=== PATIENT | female | born 1960 | race Caucasian/White ===

== ENCOUNTER → 2017-03-25 | Outpatient (CLI) | payer OTHER ==
--- NOTE | 2017-03-26 12:44 | MAMMOGRAPHY REPORT ---
BILATERAL DIGITAL SCREENING MAMMOGRAM TOMOSYNTHESIS WITH CAD: 03/25/2017 CLINICAL HISTORY: Routine screening. Patient has no complaints. TECHNIQUE: Breast tomosynthesis in addition to standard 2D mammography was performed. Current study was also evaluated with a Computer Aided Detection (CAD) system. COMPARISON: Comparison is made to exams dated: 03/21/2016 mammogram, 02/24/2015 ultrasound, 02/24/2015 mammogram, 02/16/2015 mammogram, 02/15/2014 mammogram, and 02/11/2013 mammogram - [facility]. BREAST COMPOSITION: There are scattered areas of fibroglandular density in both breasts. FINDINGS: There are stable nodular asymmetries in the medial left breast. No new suspicious mass, ar chitectural distortion or cluster of microcalcifications is seen. IMPRESSION: ACR BI-RADS CATEGORY 1: NEGATIVE There is no mammographic evidence of malignancy. A 1 year screening mammogram is recommended. The pa tient will receive written notification of the results. Approximately 10% of breast cancers are not detected with mammography. A negative mammographic report should not delay biopsy if a clinically suggestive mass is present. Chelsey Desai M.D. ay/:03/25/2017 15:57:55 Retail Mortgage Banker: Lorelei Seymour, [facility] letter sent: Normal 1/2 BI-RADS Code: ACR BI-RADS Category 1: Negative
== END | disposition home or self-care (01) ==
LOC: C.MAMM 08:40
PROVIDERS: ATTEND Family Medicine
DX: Z12.31 Encounter for screening mammogram for malignant neoplasm of breast (principal)

== ENCOUNTER → 2018-03-31 | Outpatient (CLI) | payer OTHER ==
--- NOTE | 2018-04-01 14:54 | MAMMOGRAPHY REPORT ---
BILATERAL DIGITAL SCREENING MAMMOGRAM TOMOSYNTHESIS WITH CAD: 03/31/2018 CLINICAL HISTORY: Routine screening. Patient has no complaints. TECHNIQUE: The study was acquired using full field digital technology and interpreted from soft copy. Breast tomosynthesis in addition to standard 2D mammography was performed. Current study was also ev aluated with a Computer Aided Detection (CAD) system. COMPARISON: Comparison is made to exams dated: 03/21/2016 mammogram, 02/24/2015 ultrasound, 02/24/2015 mammogram, 02/16/2015 mammogram, 02/15/2014 mammogram, and 02/11/2013 mammogram - [facility]. BREAST COMPOSITION: There are scattered areas of fibroglandular density in both breasts. FINDINGS: There are stable asymmetries in the medial anterior left breast. Minimal vascular calcific ation in the breasts. No suspicious mass, architectural distortion or cluster of microcalcifications is seen. IMPRESSION: ACR BI-RADS CATEGORY 1: NEGATIVE There is no mammographic evidence of malignancy. A 1 year screening mammogram is recommended.( 019) The patient will receive written notification of the results. Some breast cancers are not detected with mammography. A negative mammographic report should not jordan y biopsy if a clinically suggestive mass is present. Chelsey Desai M.D. ay/:03/31/2018 15:39:23 Regional Operations Manager: RT Ayana(R)(M), [facility] letter sent: Normal 1/2 BI-RADS Code: ACR BI-RADS Category 1: Negative
== END | disposition home or self-care (01) ==
LOC: C.MAMM 09:09
PROVIDERS: ATTEND Family Medicine
DX: Z12.31 Encounter for screening mammogram for malignant neoplasm of breast (principal)

== ENCOUNTER 2021-09-01 17:19 | Inpatient (IN) ==
[2021-09-01] MEDS ORDERED: dexAMETHasone 6 MG in SYRINGE 0 ML IV ONE (17:48)
[2021-09-01] MEDS ORDERED: SODIUM CHLORIDE 0.9% 1000ML 1,000 ML IV ONE (17:48)
--- NOTE | 2021-09-01 17:59 | Emergency Department Note ---
Impression & Plan Respiratory failure, Pneumonia due to 2019 novel coronavirus, Hypoxia ED Provider Note NAME: ALYCIA SARAVIA AGE: 61 SEX: F : 1960 ARRIVES VIA: Walk-In INFORMANT: Patient ED PROVIDER(S): Mahamed Oconnor DO CHIEF COMPLAINT: COIVD+ SOB HPI: Patient is a 61-year-old female unvaccinated who presents ER with upper respiratory symptoms with start just over a week ago. She admits to upper respiratory symptoms which include cough and congestion as well as shortness of breath which is significantly worsened. Her shortness of breath has been progressing for the past several days. She has a pulse oximeter at home and has been using it. It has been as low as high 70s. Denies any belly pain, nausea, vomiting, or diarrhea. No dysuria, urgency, or frequency. has similar symptoms but is vaccinated and doing well. No other exacerbating or remitting factors ROS: See above HPI for pertinent positives & negatives. A total of 10 systems reviewed and were otherwise negative. PAST MEDICAL HISTORY:See Below PAST SURGICAL HISTORY:See Below FAMILY HISTORY:See Below SOCIAL HISTORY:See Below HOME MEDICATIONS:See Below ALLERGIES:See Below VITALS:See Below PHYSICAL EXAMINATION: GENERAL: Sitting up in bed, alert, ill-appearing, mild distress EYE EXAM: normal conjunctiva. OROPHARYNX: Dry mucous membranes NECK: supple, no nuchal rigidity, no adenopathy, non-tender LUNGS: Diminished bilaterally. Normal chest wall mechanics HEART: no murmurs, S1 normal and S2 normal ABDOMEN: abdomen soft, non-tender, normo-active bowel sounds, no masses, no rebound or guarding. BACK: Back is symmetrical on inspection and there is no deformity, no midline tenderness, no CVA tenderness. SKIN: no rashes and no bruising UPPER EXTREMITIES: upper extremities are grossly normal. LOWER EXTREMITIES: No pitting edema. Calves are equal bilateral NEURO EXAM: Normal sensorium, cranial nerves II-XII grossly intact, normal speech, no gross weakness of arms, no gross weakness of legs. MEDICAL DECISION MAKING: Patient is a 61-year-old female who presents ER for upper respiratory symptoms and Covid positive with a pulse ox reading in the low 80s and high 70s at home. IV was established blood work was obtained. She was found to be hypoxic in the low 80s here. She is placed on nasal cannula 3 L. IV was established blood was obtained. Labs show no significant leukocytosis or anemia. BMP with mild hypokalemia at 3.4. AST slightly elevated at 98. ALT was normal. Troponin was negative. Patient was Covid positive. Chest x-ray with bilateral infiltrates. EKG was unremarkable. Patient was given IV fluids and Decadron and remained on nasal cannula while in the ER. Patient was admitted for further work-up to Dr. John Shannon. Triage Nursing notes reviewed. Limited review of prior medical records performed Vital Signs: reviewed and remarkable for hypoxic Differential diagnosis: Differential diagnoses includes but is not limited to pneumonia, bronchitis, INFORMATION SECURITY CONSULTANT D/Asthma exacerbation, pneumothorax, pulmonary embolism, congestive heart failure, acute coronary syndrome ER treatment provided: See below Diagnostics interpreted by me: ECG: Sinus rhythm rate 84 Normal axis No PVCs QTC 444 Cardiac Monitoring: An order was placed for continuous cardiac monitoring. The monitor shows a rate of 80 with sinus rhythm. Laboratory studies: As stated above and show below. Imaging studies: Portable AP upright 1 view of the chest shows bilateral focal infiltrates Consultation(s): Discussed with the hospitalist John Shannon Procedures: none Critical Care: I have personally spent 32 minutes of critical care time in the direct ma nagement of this patient. This includes bedside care, interpretation of diagnostic studies, and testing, discussion with consultants, patient, and family members, and other required patient management activities. This 32 minutes is in excess of all separately billable procedures. Past Med/Surg History Social History Smoking Status: Never smoker Feels Safe at Home: Yes Allergies Allergies Allergy/AdvReac Type Severity Reaction Status Date / Time Penicillins Allergy Unknown Unverified 09/01/21 19:36 Home Meds Home Medications Medication Instructions Recorded Confirmed acetaminophen 650 mg 1,300 mg PO Q8H PRN 09/01/21 09/01/21 tablet,extended release (Tylenol 8 Hour) amlodipine 10 mg tablet 10 mg PO DAILY 09/01/21 09/01/21 dextromethorphan-guaifenesin 10 1 tab-cap PO QID PRN 09/01/21 09/01/21 mg-200 mg capsule (Coricidin HBP Chest Congestion-Cough) ibuprofen 200 mg tablet 400 mg PO Q6H PRN 09/01/21 09/01/21 levothyroxine 112 mcg tablet 112 mcg PO QAM 09/01/21 09/01/21 Results & Data (ED) Vital Signs Vital Signs - 24 hr 09/01/21 17:39 09/01/21 18:00 09/01/21 18:47 Temperature 36.4 C L Temperature Source Temporal Artery Scan Pulse Rate 94 H 89 Pulse Rate from SpO2 Sensor 88 Respiratory Rate 20 28 H 27 H Respiratory Effort / Characteristics Non-Labored Spontaneous Respiratory Depth Normal Respiratory Pattern Regular Blood Pressure 121/79 139/88 153/102 H Blood Pressure Mean 93 105 119 Pulse Oximetry 84 L 93 Oxygen Delivery Method Room Air Oxygen Flow Rate Sepsis Recent Fever Within 48 Hours No Sepsis New/Unexplained Change in Mental Status No Sepsis Action Taken by Nursing No Action Required 09/01/21 19:03 09/01/21 19:30 Temperature Temperature Source Pulse Rate 82 Pulse Rate from SpO2 Sensor Respiratory Rate 15 Respiratory Effort / Characteristics Non-Labored Spontaneous Respiratory Depth Normal Respiratory Pattern Regular Blood Pressure 143/79 H Blood Pressure Mean 100 Pulse Oximetry 93 92 Oxygen Delivery Method Nasal Cannula Nasal Cannula Oxygen Flow Rate 3 3 Sepsis Recent Fever Within 48 Hours Sepsis New/Unexplained Change in Mental Status Sepsis Action Taken by Nursing Laboratory Data Result diagrams: 09/01/21 17:48 09/01/21 17:48 Lab Results 09/01/21 09/01/21 09/01/21 Range/Units 17:48 17:48 Unknown WBC 10.43 (4.8-10.8) K/uL RBC 4.75 (4.2-5.4) M/uL Hgb 13.9 (12.0-16.0) g/dL Hct 41.2 (37-47) % MCV 86.7 (80-100) fL MCH 29.3 (25-34) pg MCHC 33.7 (32-36) g/dL RDW Std Deviation 44.6 (36.4-46.3) fL RDW Coeff of Francisco 14.1 (11.5-14.5) % Plt Count 279 (130-400) K/uL MPV 9.9 (7.4-10.4) fL Immature Gran % (Auto) 0.4 % Neut % (Auto) 89.2 % Lymph % (Auto) 7.3 % [place] % (Auto) 2.9 % Eos % (Auto) 0.0 % Baso % (Auto) 0.2 % Neut # (Auto) 9.31 H (1.4-6.5) K/uL Lymph # (Auto) 0.76 L (1.2-3.4) K/uL [place] # (Auto) 0.30 (0.11-0.59) K/uL Eos # (Auto) 0.00 (0-0.5) K/uL Baso # (Auto) 0.02 (0-0.2) K/uL Immature Gran # (Auto) 0.04 H (0.00-0.02) K/uL Sodium 140 (136-145) mmol/L Potassium 3.4 L (3.5-5.1) mmol/L Chloride 107 (98-107) mmol/L Carbon Dioxide 28 (21-32) mmol/L Anion Gap 5.0 (3-11) BUN 19 H (7-18) mg/dl Creatinine 0.80 (0.6-1.2) mg/dl Est Cr Clr Drug Dosing Not Reportable Est GFR ( Amer) 92.9 ml/min Est GFR (Non-Af Amer) 80.1 ml/min BUN/Creatinine Ratio 23.4 H (10-20) Glucose 111 H (70-99) mg/dl Calcium 9.1 (8.5-10.1) mg/dl Total Bilirubin 0.4 (0.2-1) mg/dl AST 98 H (15-37) U/L ALT 75 (12-78) Alkaline Phosphatase 170 H (45-117) U/L Troponin I < 0.015 (0-0.045) ng/ml Total Protein 7.1 (6.4-8.2) gm/dl Albumin 2.4 L (3.4-5.0) gm/dl Globulin 4.7 H (2.5-4.0) gm/dl Albumin/Globulin Ratio 0.5 L (0.9-2) Lipase 69 L (73-393) U/L SARS-CoV-2, RNA, NAAT POSITIVE A* (NEGATIVE) Administered Medications Discontinued Medications Dexamethasone (Dexamethasone Sod Inj 4 Mg/Ml Vial) Confirm Administered Dose 4 mg .ROUTE .STK-MED ONE Stop: 09/01/21 18:36 Last Admin: 09/01/21 18:38 Dose: Not Given Documented by: [id number] Dexamethasone 6 mg/ Syringe 1.5 mls @ 1 mls/min IV ONE ONE Stop: 09/01/21 17:49 Last Admin: 09/01/21 18:38 Dose: 1 mls/min Documented by: [id number] Sodium Chloride (Nss 1000ml) 1,000 mls @ 999 mls/hr IV .Q1H1M ONE Stop: 09/01/21 18:48 Last Admin: 09/01/21 18:37 Dose: 999 mls/hr Documented by: [id number] Imaging Data Radiologist's Impression: Chest X-Ray 09/01/21 17:48 XR chest 1V portable HISTORY: 61 years-old Female Chest Pain acute atypical chest pain COMPARISON: None TECHNIQUE: Portable AP view of the chest FINDINGS: Cardiac silhouette is normal in size. There is no pneumothorax.. Multifocal right greater than left airspace opacities. Bones appear grossly intact. IMPRESSION: 1. Right greater than left airspace opacities are compatible with multifocal pneumonia. 2. Probable trace pleural effusions. ACT 112: Negative or not required by law. The above report was generated using voice recognition software. It may contain grammatical, syntax or spelling errors. Electronically signed by: Deandre Rowe M.D. 09/01/2021 6:42 PM Discharge Plan Visit Data Chief Complaint: Shortness of Breath/Dyspnea Stated Complaint: COVID + 07/29/21 ED Provider: Mahamed Oconnor Discharge Problem: Respiratory failure, Pneumonia due to 2019 novel coronavirus, Hypoxia Forms Stand Alone Forms: My [facility] [employer] Prescriptions Prescriptions: No Action levothyroxine 112 mcg tablet 112 mcg PO QAM RF: 0 Coricidin HBP Chest Ian-Cough 10-200 mg Capsule 1 tab-cap PO QID PRN (Reason: Cough) RF: 0 amlodipine 10 mg Tablet 10 mg PO DAILY RF: 0 ibuprofen 200 mg Tablet 400 mg PO Q6H PRN (Reason: Pain) RF: 0 acetaminophen [Tylenol 8 Hour] 650 mg Tablet Extended Release 1,300 mg PO Q8H PRN (Reason: Pain) RF: 0 Referrals Referrals: Netta Duran DO [Primary Care Provider] - Discharge Problem: Respiratory failure Qualifiers: Chronicity: acute Respiratory failure complication: hypoxia Qualified Code(s): J96.01 - Acute respiratory failure with hypoxia
[2021-09-01] MEDS ORDERED: DEXAMETHASONE SOD INJ 4 MG/ML VIAL ONE (18:35)
--- NOTE | 2021-09-01 18:43 | XRay Report ---
XR chest 1V portable HISTORY: 61 years-old Female Chest Pain acute atypical chest pain COMPARISON: None TECHNIQUE: Portable AP view of the chest FINDINGS: Cardiac silhouette is normal in size. There is no pneumothorax.. Multifocal right greater than left a irspace opacities. Bones appear grossly intact. IMPRESSION: 1. Right greater than left airspace opacities are compatible with multifocal pneumonia. 2. Probable trace pleural effusions. ACT 112: Negative or not required by law. The above report was generated using voice recognition software. It may contain grammatical, syntax o r spelling errors. Electronically signed by: Deandre Rowe M.D. 09/01/2021 6:42 PM
[2021-09-01 18:45] LABS: Basophils # (auto) 0.02 K/uL (0-0.2); Basophils % (auto) 0.2 %; Hematocrit (blood only) 41.2 % (37-47); Hemoglobin 13.9 g/dL (12.0-16.0); Immature Granulocytes # (auto) 0.04 K/uL (0.00-0.02); Immature Granulocytes % (auto) 0.4 %; Lymphocytes # (auto) 0.76 K/uL (1.2-3.4); Lymphocytes % (auto) 7.3 %; Mean Corpuscular Hemoglobin 29.3 pg (25-34); Mean Corpuscular Hgb Conc 33.7 g/dL (32-36); Mean Corpuscular Volume 86.7 fL (80-100); Mean Platelet Volume 9.9 fL (7.4-10.4); Monocytes % (auto) 2.9 %; Neutrophils # (auto) 9.31 K/uL (1.4-6.5); Neutrophils % (auto) 89.2 %; Platelet Count 279 K/uL (130-400); RDW Coefficient of Variation 14.1 % (11.5-14.5); RDW Standard Deviation 44.6 fL (36.4-46.3); Red Blood Count 4.75 M/uL (4.2-5.4); White Blood Count 10.43 K/uL (4.8-10.8)
[2021-09-01 19:10] LABS: Alanine Aminotransferase 75 (12-78); Albumin Level 2.4 gm/dl (3.4-5.0); Aspartate Aminotransferase 98 U/L (15-37); BUN Creatinine Ratio 23.4 (10-20); Blood Urea Nitrogen 19 mg/dl (7-18); Calcium 9.1 mg/dl (8.5-10.1); Carbon Dioxide 28 mmol/L (21-32); Chloride 107 mmol/L (98-107); Est GFR (African American) 92.9 ml/min; Est GFR (Non-African American) 80.1 ml/min; Glucose 111 mg/dl (70-99); Lipase 69 U/L (73-393); Potassium 3.4 mmol/L (3.5-5.1); Sodium 140 mmol/L (136-145)
[2021-09-01 19:15] LABS: Albumin Globulin Ratio 0.5 (0.9-2); Alkaline Phosphatase 170 U/L (45-117); Bilirubin,Total 0.4 mg/dl (0.2-1); Globulin 4.7 gm/dl (2.5-4.0); Total Protein 7.1 gm/dl (6.4-8.2); Troponin I < 0.015 ng/ml (0-0.045)
[2021-09-01] MEDS ORDERED: REMDESIVIR 200 MG in SODIUM CHLORIDE 0.9% 210 ML IV STA (20:02)
--- NOTE | 2021-09-01 20:02 | History & Physical Report ---
Date of Service September 01, 2021 Assessment & Plan (1) Acute respiratory failure with hypoxia: Plan: Acute respiratory failure with hypoxia/COVID-19 pneumonia/secondary bacterial pneumonia- Given dexamethasone 10 mg IV by the ED Dexamethasone 6 mg IV every morning Remdesivir IV per protocol Duonebs every 4 hours while awake and every 2 hours when necessary. Ceftriaxone 1 g IV daily Azithromycin 500 mg IV daily Guaifenesin extended release 12 mg p.o. twice daily Vitamin D 5000 international units p.o. every morning Zinc sulfate 220 mg p.o. every morning Nasal cannula oxygen, titrate to keep pulse ox 92-94% (2) Pneumonia due to 2019 novel coronavirus: Plan: See above (3) Secondary bacterial pneumonia: Plan: See above (4) Hypertension: Plan: Continue amlodipine with hold parameters (5) Hypothyroidism (acquired): Plan: Continue levothyroxine History of Present Illness Chief Complaint: The patient presents to the emergency department with symptoms of shortness of breath, dyspnea on exertion, cough, congestion and generalized fatigue, initially began about 7 days ago, but worsened considerably over the past 3 days Primary Care Provider: Netta Duran DO The patient is a 61-year-old female with past medical history including hype rtension and hypothyroidism, who is unvaccinated for COVID-19, who was exposed to a 20-year-old son with COVID-19, who presents with symptoms as noted above. Significant laboratories: Potassium 3.4, AST 98, albumin 2.4. COVID-19 testing is positive Pulse ox on room air is 84%, improving to 94% on 3 L nasal cannula oxygen. Patient was given dexamethasone 10 mg IV by the ED Allergies Allergy/AdvReac Type Severity Reaction Status Date / Time Penicillins Allergy Unknown Unverified 09/01/21 19:36 Home Medications Medication Instructions Recorded Confirmed Type acetaminophen 650 mg 1,300 mg PO Q8H PRN 09/01/21 09/01/21 History tablet,extended release (Tylenol 8 Hour) amlodipine 10 mg tablet 10 mg PO DAILY 09/01/21 09/01/21 History dextromethorphan-guaifenesin 10 1 tab-cap PO QID PRN 09/01/21 09/01/21 History mg-200 mg capsule (Coricidin HBP Chest Congestion-Cough) ibuprofen 200 mg tablet 400 mg PO Q6H PRN 09/01/21 09/01/21 History levothyroxine 112 mcg tablet 112 mcg PO QAM 09/01/21 09/01/21 History Past Med/Surg History Medical History (Updated 09/01/21 @ 21:40 by John Shannon MD) Hypertension Hypothyroidism (acquired) Social History Smoking Status: Never smoker Feels Safe at Home: Yes Review of Systems Review of Systems: The patient denies chest pain, palpitations, lower extremity swelling, chills, sweats, nausea, vomiting, diarrhea , constipation, abdominal pain, pelvic pain, blood in urine or stool, dysuria, urinary frequency or urgency, memory loss, loss of consciousness, rash, abnormal bruising or bleeding, imbalance, focal weakness, numbness or tingling in arms or legs, back or neck pain, or night sweats. The review of systems is otherwise negative other than for that already noted above, and at least 10 systems have been reviewed. Physical Exam Physical Exam: The patient is awake, alert and oriented 3, well developed and well nourished, normocephalic and atraumatic, lying in bed on her stomach, and in no acute distress. HEENT--PERRL, EOMI, mucous membranes and oropharynx dry. Neck--supple. No JVD. No bruits. Thyroid normal, trachea midline, no a denopathy. Heart--normal S1 and S2. No murmurs, rubs or gallops. Lungs-coarse breath sounds bilaterally. Mild respiratory distress, no accessory muscle use. Abdomen--normal bowel sounds and soft. Nontender. Nondistended. Mildly obese Extremities--no cyanosis or clubbing. No edema. Dermatologic--normal skin turgor, normal color, no abnormal lymph nodes, no rash. Neurologic--cranial nerves II through XII grossly intact. Rheumatologic--normal range of motion. Psychiatric--normal affect. Results & Data Results & Data ([facility]) Vital Signs (Past 12 Hours) Vital Signs Temp Pulse Resp BP Pulse Ox 09/01/21 19:30 82 15 143/79 H 92 09/01/21 19:03 93 09/01/21 18:47 89 27 H 153/102 H 93 09/01/21 18:00 94 H 28 H 139/88 09/01/21 17:39 36.4 C L 20 121/79 84 L Laboratory Results Laboratory Results WBC 10.43 K/uL (4.8-10.8) 09/01/21 17:48 RBC 4.75 M/uL (4.2-5.4) 09/01/21 17:48 Hgb 13.9 g/dL (12.0-16.0) 09/01/21 17:48 Hct 41.2 % (37-47) 09/01/21 17:48 MCV 86.7 fL (80-100) 09/01/21 17:48 MCH 29.3 pg (25-34) 09/01/21 17:48 MCHC 33.7 g/dL (32-36) 09/01/21 17:48 RDW Std Deviation 44.6 fL (36.4-46.3) 09/01/21 17:48 RDW Coeff of Francisco 14.1 % (11.5-14.5) 09/01/21 17:48 Plt Count 279 K/uL (130-400) 09/01/21 17:48 MPV 9.9 fL (7.4-10.4) 09/01/21 17:48 Immature Gran % (Auto) 0.4 % 09/01/21 17:48 Neut % (Auto) 89.2 % 09/01/21 17:48 Lymph % (Auto) 7.3 % 09/01/21 17:48 [place] % (Auto) 2.9 % 09/01/21 17:48 Eos % (Auto) 0.0 % 09/01/21 17:48 Baso % (Auto) 0.2 % 09/01/21 17:48 Neut # (Auto) 9.31 K/uL (1.4-6.5) H 09/01/21 17:48 Lymph # (Auto) 0.76 K/uL (1.2-3.4) L 09/01/21 17:48 [place] # (Auto) 0.30 K/uL (0.11-0.59) 09/01/21 17:48 Eos # (Auto) 0.00 K/uL (0-0.5) 09/01/21 17:48 Baso # (Auto) 0.02 K/uL (0-0.2) 09/01/21 17:48 Immature Gran # (Auto) 0.04 K/uL (0.00-0.02) H 09/01/21 17:48 Sodium 140 mmol/L (136-145) 09/01/21 17:48 Potassium 3.4 mmol/L (3.5-5.1) L 09/01/21 17:48 Chloride 107 mmol/L (98-107) 09/01/21 17:48 Carbon Dioxide 28 mmol/L (21-32) 09/01/21 17:48 Anion Gap 5.0 (3-11) 09/01/21 17:48 BUN 19 mg/dl (7-18) H 09/01/21 17:48 Creatinine 0.80 mg/dl (0.6-1.2) 09/01/21 17:48 Est Cr Clr Drug Dosing Not Reportable 09/01/21 17:48 Est GFR ( Amer) 92.9 ml/min 09/01/21 17:48 Est GFR (Non-Af Amer) 80.1 ml/min 09/01/21 17:48 BUN/Creatinine Ratio 23.4 (10-20) H 09/01/21 17:48 Glucose 111 mg/dl (70-99) H 09/01/21 17:48 Calcium 9.1 mg/dl (8.5-10.1) 09/01/21 17:48 Total Bilirubin 0.4 mg/dl (0.2-1) 09/01/21 17:48 AST 98 U/L (15-37) H 09/01/21 17:48 ALT 75 (12-78) 09/01/21 17:48 Alkaline Phosphatase 170 U/L (45-117) H 09/01/21 17:48 Troponin I < 0.015 ng/ml (0-0.045) 09/01/21 17:48 Total Protein 7.1 gm/dl (6.4-8.2) 09/01/21 17:48 Albumin 2.4 gm/dl (3.4-5.0) L 09/01/21 17:48 Globulin 4.7 gm/dl (2.5-4.0) H 09/01/21 17:48 Albumin/Globulin Ratio 0.5 (0.9-2) L 09/01/21 17:48 Lipase 69 U/L (73-393) L 09/01/21 17:48 SARS-CoV-2, RNA, NAAT POSITIVE (NEGATIVE) A* 09/01/21 Unknown Impressions Chest X-Ray 09/01/21 17:48 XR chest 1V portable HISTORY: 61 years-old Female Chest Pain acute atypical chest pain COMPARISON: None TECHNIQUE: Portable AP view of the chest FINDINGS: Cardiac silhouette is normal in size. There is no pneumothorax.. Multifocal right greater than left airspace opacities. Bones appear grossly intact. IMPRESSION: 1. Right greater than left airspace opacities are compatible with multifocal pneumonia. 2. Probable trace pleural effusions. ACT 112: Negative or not required by law. The above report was generated using voice recognition software. It may contain grammatical, syntax or spelling errors. Electronically signed by: Deandre Rowe M.D. 09/01/2021 6:42 PM Code Status & VTE Plan Code Status Full code VTE Prophylaxis Plan VTE Prophylaxis will be ordered: Yes PG Care Time/CCT Total # of Minutes Spent Total Time Spent with Patient: Total time spent is greater than 50% in coordination of care (as documented) at patient's floor/unit and/or counseling patient: Coding Level of Care Code 16770 Initial Inpt Care Lvl 3 Diagnoses Acute respiratory failure with hypoxia J96.01 Secondary bacterial pneumonia J15.9 Pneumonia due to 2019 novel coronavirus U07.1; J12.82 Hypertension I10 Hypothyroidism (acquired) E03.9
[2021-09-01] MEDS ORDERED: OPTIRAY 320 125ml IV ONE (23:16)
[2021-09-01] MEDS ORDERED: ONDANSETRON INJ 2 MG/ML 2 ML VIAL IV PRN (23:34)
--- NOTE | 2021-09-01 23:45 | CT Scan Report ---
CT angio chest PE protocol CT DOSE: 302.33 mGy.cm HISTORY: 61 years-old Female with PE. Acute chest pain with shortness of breath. COVID Positive. TECHNIQUE: Multiple CTA images of the chest were obtained after the intravenous administration of 117 ml Optiray. Coronal and sagittal MIPS were obtained from the axial data set and were submitted for review. All measurements were obtained according to NASCET criteria. A dose lowering technique was u tilized adhering to the principles of ALARA. COMPARISON: Chest radiograph of same day FINDINGS: CTA: Moderate cardiomegaly. No pericardial effusion. Mild coronary artery calcifications. No thoracic aort ic aneurysm or dissection. Patency of the imaged great vessels. No pulmonary emboli identified. CT CHEST: No thyroid nodule. Mildly enlarged mediastinal and hilar lymph nodes are likely reactive. Small pleur al effusions. No pneumothorax. Extensive bilateral subpleural predominant intermixed groundglass and alveolar opacities. No overt pulmonary edema. The central airways are patent. Suggested hepatosplenomegaly. Small hiatal hernia. Unremarkable soft tissues. Punctate bone islands o f the proximal right humerus. There is no acute fracture identified. IMPRESSION: 1. Cardiomegaly without pulmonary emboli. 2. Extensive bilateral groundglass and alveolar opacities compatible with viral pneumonia. 3. Small pleural effusions. ACT 112: Negative or not required by law. The above report was generated using voice recognition software. It may contain grammatical, syntax o r spelling errors. Electronically signed by: Deandre Rowe M.D. 09/01/2021 11:43 PM
[2021-09-02] MEDS: guaiFENesin 600 MG TABCR PO SCH ×3 (00:30→20:31)
[2021-09-02] MEDS: cefTRIAXone SODIUM 1,000 MG in DEXTROSE 5% 50 ML IV SCH ×2 (00:30→23:38)
[2021-09-02] MEDS: LEVOTHYROXINE SODIUM 112 MCG TABLET PO SCH (06:04)
[2021-09-02] MEDS: AZITHROMYCIN 500 MG in DEXTROSE 5% 250 ML IV SCH (06:05)
[2021-09-02] MEDS: ALBUT/IPRATROP 3MG/0.5MG NEB 3 ML VIAL NEB SCH ×4 (08:28→19:07)
[2021-09-02 08:44] LABS: Basophils # (auto) 0.02 K/uL (0-0.2); Basophils % (auto) 0.3 %; Hematocrit (blood only) 39.9 % (37-47); Hemoglobin 13.4 g/dL (12.0-16.0); Immature Granulocytes # (auto) 0.04 K/uL (0.00-0.02); Immature Granulocytes % (auto) 0.5 %; Lymphocytes # (auto) 0.67 K/uL (1.2-3.4); Lymphocytes % (auto) 8.7 %; Mean Corpuscular Hemoglobin 29.1 pg (25-34); Mean Corpuscular Hgb Conc 33.6 g/dL (32-36); Mean Corpuscular Volume 86.6 fL (80-100); Mean Platelet Volume 10.1 fL (7.4-10.4); Monocytes # (auto) 0.22 K/uL (0.11-0.59); Monocytes % (auto) 2.9 %; Neutrophils # (auto) 6.72 K/uL (1.4-6.5); Neutrophils % (auto) 87.6 %; Platelet Count 348 K/uL (130-400); RDW Coefficient of Variation 14.4 % (11.5-14.5); RDW Standard Deviation 45.4 fL (36.4-46.3); Red Blood Count 4.61 M/uL (4.2-5.4); White Blood Count 7.67 K/uL (4.8-10.8)
[2021-09-02] MEDS: ZINC SULFATE 220 MG CAPSULE PO SCH (08:46)
[2021-09-02] MEDS: amLODIPine BESYLATE 5 MG TAB PO SCH (08:46)
[2021-09-02] MEDS: dexAMETHasone 6 MG in SYRINGE 0 ML IV SCH (08:46)
[2021-09-02] MEDS: CHOLECALCIFEROL 5,000 UNITS 125 MCG TAB PO SCH (08:46)
[2021-09-02 09:07] LABS: Albumin Level 2.2 gm/dl (3.4-5.0); Calcium 8.9 mg/dl (8.5-10.1); Creatinine Clr Calc Pharmacy 81.9 ml/min; Est GFR (African American) 107.3 ml/min; Est GFR (Non-African American) 92.6 ml/min; Potassium 3.6 mmol/L (3.5-5.1)
[2021-09-02 09:09] LABS: Albumin Globulin Ratio 0.5 (0.9-2); Globulin 4.4 gm/dl (2.5-4.0); Total Protein 6.6 gm/dl (6.4-8.2)
[2021-09-02 09:26] LABS: Bilirubin,Total 0.3 mg/dl (0.2-1)
[2021-09-02] MEDS ORDERED: FUROSEMIDE 40 MG/4 ML VIAL IV ONE (10:00)
[2021-09-02] MEDS ORDERED: BARICITINIB COMMUNICATION ONE (12:26)
[2021-09-02] MEDS: 4mg Daily x 14 days (eGFR >60 mL/min/1.73m2) PO SCH (16:19)
--- NOTE | 2021-09-02 18:12 | Hospitalist Progress Note ---
Date of Service September 02, 2021 Assessment & Plan (1) Pneumonia due to 2019 novel coronavirus: Plan: * unvaccinated * initially on 5L o2. on 09/02-- up to 14L and still desaturating into the mid 80's with limited movement (such as toileting) -- goal pulse ox is 88-90% * decadron day #2 * Remdesivir day #2 * Duonebs as needed * CRP 25 * start baricitinib, day #1 * begin lasix trials * continue empiric abx as started by admitted provider; however, unlikely s/s bacterial PNA. likely all Covid related (Ceftriaxone/ Azithromycin) * Mucolytic agents and antitussives on board * Continue vitamin D, zinc and add vitamin C * encouraged proning! * add IS/flutter valve * add lovenox for DVt prophylaxis (2) Hypertension: Plan: Continue amlodipine with hold parameters (3) Hypothyroidism (acquired): Plan: Continue levothyroxine Admission and Anticipated Discharge Date Admission Date: September 01, 2021 Supervising Physician Co-Signing Physician Notes chart reviewed and case d/w Kim Florez PAC - agree with above. Subjective Patient seen on daily rounds today. Did desaturate after toileting. Reports that her oxygen tubing got twisted and she had to take it off for a brief period of time. With this, she desaturated into the high 70s/low 80s and took a while to recover. Was requiring 13 to 14 L and her pulse ox was in the 90s with that. With toileting to the bedside commode, she desaturated into the 80s. Otherwise denies fevers, chills, chest pain, abdominal pain, nausea or vomiting. Review of Systems Review of Systems: All systems reviewed and are unremarkable except as noted in HPI and below Denies fevers, chills, headache, nasal congestion, sore throat, cough, chest pain, shortness of breath, palpitations, orthopnea, PND, abdominal pain, nausea, vomiting, diarrhea, constipation, dysuria, hematuria, frequency, back pain, joint pain or swelling, easy bruising or bleeding, skin lesions or rashes. Physical Exam Physical Exam: General: Resting comfortably in her hospital bed. NAD. HEENT: Head is AT/NC buccal mucosa is moist and pink Neck: No JVD. Negative hepatojugular reflex Cardiac: RRR without M/G/R Lungs: Speaking full sentences on supplemental oxygen. No accessory muscle use. Normal respiratory effort. Diminished breath sounds throughout with positive egophony at the bases Abdomen: Normoactive X4. Soft and nontender in all quadrants. Extremities: No peripheral clubbing cyanosis or edema Neuro: A&O X4 cranial nerves II through XII are grossly intact no focal neuro deficits Skin: No obvious skin lesions or rashes Psych: Appropriate affect pleasant and cooperative Results & Data Results & Data ([facility]) Vital Signs (Past 12 Hours) Vital Signs Temp Pulse Pulse Resp BP Pulse Ox 09/02/21 15:51 96 H 20 93 09/02/21 15:37 96 H 18 93 09/02/21 15:29 37.2 C 89 19 136/86 96 09/02/21 15:00 89 09/02/21 11:24 82 20 97 09/02/21 11:11 37.4 C 82 21 156/85 H 95 09/02/21 08:28 85 20 97 09/02/21 07:30 76 09/02/21 06:37 37.3 C 76 18 154/82 H 91 Laboratory Results 09/02/21 08:03 09/02/21 08:03 PG Care Time/CCT Total # of Minutes Spent Total Time Spent with Patient: Total time spent is greater than 50% in coordination of care (as documented) at patient's floor/unit and/or counseling patient: Coding Level of Care Code 03517 Subseq Hosp Care Lvl 3 Diagnoses Pneumonia due to 2019 novel coronavirus U07.1; J12.82 Hypertension I10 Hypothyroidism (acquired) E03.9
[2021-09-02] MEDS ORDERED: BENZONATATE 100 MG CAPSULE PO PRN (18:20)
[2021-09-02] MEDS: ENOXAPARIN INJ 40 MG/0.4 ML SYR SQ SCH (22:18)
[2021-09-02] MEDS: REMDESIVIR 100 MG in SODIUM CHLORIDE 0.9% 230 ML IV SCH (22:18)
[2021-09-02] MEDS: SODIUM CHLORIDE 0.9% 10ML FLUSH IV SCH (23:39)
[2021-09-03] MEDS: LEVOTHYROXINE SODIUM 112 MCG TABLET PO SCH (05:30)
[2021-09-03] MEDS: AZITHROMYCIN 500 MG in DEXTROSE 5% 250 ML IV SCH (05:30)
[2021-09-03 06:44] LABS: Hematocrit (blood only) 40.8 % (37-47); Hemoglobin 13.6 g/dL (12.0-16.0); Mean Corpuscular Hgb Conc 33.3 g/dL (32-36); Mean Platelet Volume 9.8 fL (7.4-10.4); Platelet Count 472 K/uL (130-400); RDW Coefficient of Variation 14.7 % (11.5-14.5); RDW Standard Deviation 46.9 fL (36.4-46.3); Red Blood Count 4.69 M/uL (4.2-5.4); White Blood Count 7.61 K/uL (4.8-10.8)
[2021-09-03] MEDS: ALBUT/IPRATROP 3MG/0.5MG NEB 3 ML VIAL NEB SCH ×4 (07:14→18:13)
[2021-09-03 07:29] LABS: Albumin Globulin Ratio 0.5 (0.9-2); Albumin Level 2.4 gm/dl (3.4-5.0); BUN Creatinine Ratio 27.6 (10-20); Bilirubin,Total 0.3 mg/dl (0.2-1); Calcium 9.4 mg/dl (8.5-10.1); Creatinine Clr Calc Pharmacy 74.4 ml/min; Est GFR (African American) 86.3 ml/min; Est GFR (Non-African American) 74.5 ml/min; Globulin 4.8 gm/dl (2.5-4.0); Magnesium 2.6 mg/dl (1.8-2.4); Potassium 3.5 mmol/L (3.5-5.1); Total Protein 7.2 gm/dl (6.4-8.2)
[2021-09-03 07:30] LABS: C Reactive Protein 14.7 mg/dl (0-0.29)
--- NOTE | 2021-09-03 07:33 | Electrocardiogram Report ---
Test Reason : Blood Pressure : / mmHG Vent. Rate : 084 BPM Atrial Rate : 084 BPM P-R Int : 156 ms QRS Dur : 084 ms QT Int : 376 ms P-R-T Axes : 046 057 026 degrees QTc Int : 444 ms Normal sinus rhythm Normal ECG No previous ECGs available Confirmed by Mick Newsome ([id number]) on 09/03/2021 7:33:21 AM Referred By: REFERRED SELF Confirmed By:Mick Newsome
[2021-09-03 07:40] LABS: ALC (manual) 0.88 K/uL (1.2-3.4); ANC (manual) 6.46 K/uL (1.4-6.5); Lymphocytes # (manual) 0.61 K/uL (1.2-3.4); Metamyelocytes # (manual) 0.07 K/uL (0-0); Metamyelocytes % (manual) 0.9 %; Monocytes # (manual) 0.14 K/uL (0.11-0.59); Monocytes % (manual) 1.8 %; Myelocytes # (manual) 0.07 K/uL (0-0); Myelocytes % (manual) 0.9 %; Neutrophils # (manual) 6.46 K/uL (1.4-6.5); Neutrophils % (manual) 84.9 %; Plasma Cells # (manual) 0.27 K/uL (0-0); Plasma Cells % (manual) 3.5 %
[2021-09-03] MEDS: guaiFENesin 600 MG TABCR PO SCH ×2 (08:16→20:22)
[2021-09-03] MEDS: ENOXAPARIN INJ 40 MG/0.4 ML SYR SQ SCH ×2 (08:17→17:53)
[2021-09-03] MEDS: dexAMETHasone 6 MG in SYRINGE 0 ML IV SCH (08:17)
[2021-09-03] MEDS: ZINC SULFATE 220 MG CAPSULE PO SCH (08:18)
[2021-09-03] MEDS: amLODIPine BESYLATE 5 MG TAB PO SCH (08:18)
[2021-09-03] MEDS: CHOLECALCIFEROL 5,000 UNITS 125 MCG TAB PO SCH (08:18)
[2021-09-03] MEDS: FUROSEMIDE 40 MG/4 ML VIAL IV SCH (08:18)
[2021-09-03] MEDS: ASCORBIC ACID 500 MG TAB PO SCH (08:18)
[2021-09-03] MEDS: 4mg Daily x 14 days (eGFR >60 mL/min/1.73m2) PO SCH (08:23)
--- NOTE | 2021-09-03 12:58 | Hospitalist Progress Note ---
Date of Service September 03, 2021 Assessment & Plan (1) Pneumonia due to 2019 novel coronavirus: Plan: * unvaccinated * initially on 5L o2. on 1/2-- up to 14L and still desaturating into the mid 80's with limited movement (such as toileting) -- goal pulse ox is 88-90%. Tr ansitioned to [facility] requiring 60% FiO2. * now down to 6L NC and pulse ox maintained in the low 90's * decadron day #3 * Remdesivir day #3 * Duonebs as needed * CRP 25.5 now down to 14.7. Continue to trend * baricitinib started 1/2- day #2 * lasix trials started 1/2. continue this as renal function will allow * continue empiric abx as started by admitted provider; however, unlikely s/s bacterial PNA. likely all Covid related (Ceftriaxone/ Azithromycin) * Mucolytic agents and antitussives on board * Continue vitamin D, zinc and add vitamin C * encouraged proning! * continue IS/flutter valve * continue lovenox for DVT prophylaxis (2) Hypertension: Plan: Continue amlodipine with hold parameters (3) Hypothyroidism (acquired): Plan: Continue levothyroxine Admission and Anticipated Discharge Date Admission Date: September 01, 2021 Subjective Patient seen on daily rounds today. Sitting upright at bedside. Overall she feels "significantly better". No longer reports shortness of breath. Able to toilet without desaturating. This morning, was still requiring 60% FiO2 but has since been transitioned to nasal cannula at 6 L. Pulse ox in the low 90s. Has not had any fevers. Denies chest pain, shortness of breath, abdominal pain, nausea or vomiting. Nursing voices no complaints or concerns. Review of Systems Review of Systems: All systems reviewed and are unremarkable except as noted in HPI and below Denies fevers, chills, headache, nasal congestion, sore throat, cough, chest pain, shortness of breath, palpitations, orthopnea, PND, abdominal pain, nausea, vomiting, diarrhea, constipation, dysuria, hematuria, frequency, back pain, joint pain or swelling, easy bruising or bleeding, skin lesions or rashes. Physical Exam Physical Exam: General: Resting comfortably in her bedside chair. Does not appear ill or toxic NAD. HEENT: Head is AT/NC buccal mucosa is moist and pink Neck: No JVD. Negative hepatojugular reflex Cardiac: RRR without M/G/R Lungs: Normal respiratory effort. Speaking full sentences without conversational dyspnea. Improved air exchange throughout with persistent bibasilar crackles and a positive egophony Abdomen: Normoactive X4. Soft and nontender in all quadrants. Extremities: No peripheral clubbing cyanosis or edema Neuro: A&O X4 cranial nerves II through XII are grossly intact no focal neuro deficits Skin: No obvious skin lesions or rashes Psych: Appropriate affect pleasant and cooperative Results & Data Results & Data ([facility]) Vital Signs (Past 12 Hours) Vital Signs Temp Pulse Pulse Resp BP Pulse Ox 09/03/21 12:24 37.0 C 103 H 20 130/71 93 09/03/21 10:24 77 16 95 09/03/21 08:00 65 09/03/21 07:56 36.8 C 70 22 138/95 93 09/03/21 07:15 63 16 98 09/03/21 03:26 37.2 C 72 22 128/76 95 09/03/21 03:20 72 16 97 Laboratory Results 09/03/21 05:41 09/03/21 05:41 PG Care Time/CCT Total # of Minutes Spent Total Time Spent with Patient: Total time spent is greater than 50% in coordination of care (as documented) at patient's floor/unit and/or counseling patient: Coding Level of Care Code 29866 Subseq Hosp Care Lvl 2 Diagnoses Pneumonia due to 2019 novel coronavirus U07.1; J12.82 Hypertension I10 Hypothyroidism (acquired) E03.9
[2021-09-03] MEDS: REMDESIVIR 100 MG in SODIUM CHLORIDE 0.9% 230 ML IV SCH (20:22)
[2021-09-03] MEDS: SODIUM CHLORIDE 0.9% 10ML FLUSH IV SCH (21:57)
[2021-09-03] MEDS: cefTRIAXone SODIUM 1,000 MG in DEXTROSE 5% 50 ML IV SCH (23:27)
[2021-09-04] MEDS: AZITHROMYCIN 500 MG in DEXTROSE 5% 250 ML IV SCH (05:22)
[2021-09-04] MEDS: LEVOTHYROXINE SODIUM 112 MCG TABLET PO SCH (05:23)
[2021-09-04] MEDS: ENOXAPARIN INJ 40 MG/0.4 ML SYR SQ SCH (06:41)
[2021-09-04 07:52] LABS: Basophils # (auto) 0.01 K/uL (0-0.2); Basophils % (auto) 0.1 %; Hematocrit (blood only) 42.2 % (37-47); Immature Granulocytes # (auto) 0.18 K/uL (0.00-0.02); Immature Granulocytes % (auto) 2.2 %; Lymphocytes # (auto) 1.02 K/uL (1.2-3.4); Lymphocytes % (auto) 12.2 %; Mean Corpuscular Hemoglobin 28.9 pg (25-34); Mean Corpuscular Hgb Conc 33.2 g/dL (32-36); Mean Platelet Volume 9.7 fL (7.4-10.4); Monocytes # (auto) 0.73 K/uL (0.11-0.59); Monocytes % (auto) 8.7 %; Neutrophils # (auto) 6.43 K/uL (1.4-6.5); Neutrophils % (auto) 76.8 %; Platelet Count 565 K/uL (130-400); RDW Coefficient of Variation 14.5 % (11.5-14.5); RDW Standard Deviation 46.3 fL (36.4-46.3); Red Blood Count 4.85 M/uL (4.2-5.4); White Blood Count 8.37 K/uL (4.8-10.8)
[2021-09-04] MEDS: amLODIPine BESYLATE 5 MG TAB PO SCH (08:14)
[2021-09-04] MEDS: ZINC SULFATE 220 MG CAPSULE PO SCH (08:15)
[2021-09-04] MEDS: guaiFENesin 600 MG TABCR PO SCH ×2 (08:15→20:51)
[2021-09-04] MEDS: FUROSEMIDE 40 MG/4 ML VIAL IV SCH (08:15)
[2021-09-04] MEDS: dexAMETHasone 6 MG in SYRINGE 0 ML IV SCH (08:15)
[2021-09-04] MEDS: CHOLECALCIFEROL 5,000 UNITS 125 MCG TAB PO SCH (08:15)
[2021-09-04] MEDS: ASCORBIC ACID 500 MG TAB PO SCH (08:15)
[2021-09-04] MEDS: 4mg Daily x 14 days (eGFR >60 mL/min/1.73m2) PO SCH (08:21)
[2021-09-04] MEDS: ALBUT/IPRATROP 3MG/0.5MG NEB 3 ML VIAL NEB SCH (08:44)
[2021-09-04 08:48] LABS: Albumin Level 2.8 gm/dl (3.4-5.0); BUN Creatinine Ratio 32.7 (10-20); Calcium 9.4 mg/dl (8.5-10.1); Est GFR (African American) 88.8 ml/min; Est GFR (Non-African American) 76.6 ml/min; Potassium 3.5 mmol/L (3.5-5.1)
[2021-09-04 08:53] LABS: Albumin Globulin Ratio 0.6 (0.9-2); Bilirubin,Total 0.4 mg/dl (0.2-1); Globulin 4.5 gm/dl (2.5-4.0); Total Protein 7.3 gm/dl (6.4-8.2)
[2021-09-04] MEDS ORDERED: ALBUT/IPRATROP 3MG/0.5MG NEB 3 ML VIAL NEB PRN (09:13)
--- NOTE | 2021-09-04 10:30 | Hospitalist Progress Note ---
Date of Service September 04, 2021 Assessment & Plan (1) Pneumonia due to 2019 novel coronavirus: Plan: * unvaccinated * initially on 5L o2. on 09/02-- up to 14L and still desaturating into the mid 80's with limited movement (such as toileting) -- goal pulse ox is 88-90%. Tr ansitioned to [facility] requiring 60% FiO2. * on 09/03- transitioned to 6L NC and pulse ox maintained in the low 90's. * has continued to show favorable response and 1/ transitioned to RA (90-93% at rest). Does seem to desaturate with toileting and will require O2 with ambulation and perhaps when asleep * decadron day #4 * Remdesivir day #4 * Duonebs as needed * CRP 25.5 now down to 14.7. Continue to trend * baricitinib started 1/2- day #3 * lasix trials started 1/2. continue this as renal function will allow * continue empiric abx as started by admitted provider; however, unlikely s/s bacterial PNA. likely all Covid related (Ceftriaxone/ Azithromycin) * Mucolytic agents and antitussives on board * Continue vitamin D, zinc and add vitamin C * had been proning when on HHF * continue IS/flutter valve * continue lovenox for DVT prophylaxis -- at this rate, with continued improvement, may be ready for discharge sooner rather than later. Will need 2 step pulse Ox prior to D/C (2) Hypertension: Plan: Continue amlodipine with hold parameters (3) Hypothyroidism (acquired): Plan: Continue levothyroxine Admission and Anticipated Discharge Date Admission Date: September 01, 2021 Subjective Patient seen on daily rounds today. Has been doing remarkably well. Her supplemental O2 has been down-titrated and she is no on RA at rest. Pulse Ox 90-93% at rest. IS requiring O2 when toileting. She continues to feel better. Denies F/C, CP, SOB, abd pain, N/V. Nursing voices no c/c. Review of Systems Review of Systems: All systems reviewed and are unremarkable except as noted in HPI and below Denies fevers, chills, headache, nasal congestion, sore throat, cough, chest pain, shortness of breath, palpitations, orthopnea, PND, abdominal pain, nausea, vomiting, diarrhea, constipation, dysuria, hematuria, frequency, back pain, joint pain or swelling, easy bruising or bleeding, skin lesions or rashes. Physical Exam Physical Exam: General: Resting comfortably in her bedside chair. Does not appear ill or toxic NAD. HEENT: Head is AT/NC buccal mucosa is moist and pink Neck: No JVD. Negative hepatojugular reflex Cardiac: RRR without M/G/R Lungs: Normal respiratory effort. Speaking full sentences without conversational dyspnea. Improved air exchange throughout without crackles but still with a positive egophony at the left base Abdomen: Normoactive X4. Soft and nontender in all quadrants. Extremities: No peripheral clubbing cyanosis or edema Neuro: A&O X4 cranial nerves II through XII are grossly intact no focal neuro deficits Skin: No obvious skin lesions or rashes Psych: Appropriate affect pleasant and cooperative Results & Data Results & Data ([facility]) Vital Signs (Past 12 Hours) Vital Signs Temp Pulse Resp BP Pulse Ox 09/04/21 08:45 79 18 09/04/21 07:45 36.7 C 74 20 138/94 93 09/04/21 04:03 36.8 C 79 16 139/73 92 09/03/21 23:28 36.7 C 85 16 141/82 H 91 Laboratory Results 09/04/21 06:48 09/04/21 06:48 PG Care Time/CCT Total # of Minutes Spent Total Time Spent with Patient: Total time spent is greater than 50% in coordination of care (as documented) at patient's floor/unit and/or counseling patient: Coding Level of Care Code 11804 Subseq Hosp Care Lvl 2 Diagnoses Pneumonia due to 2019 novel coronavirus U07.1; J12.82 Hypertension I10 Hypothyroidism (acquired) E03.9
[2021-09-04] MEDS: REMDESIVIR 100 MG in SODIUM CHLORIDE 0.9% 230 ML IV SCH (19:50)
[2021-09-04] MEDS: SODIUM CHLORIDE 0.9% 10ML FLUSH IV SCH (20:52)
[2021-09-04] MEDS: cefTRIAXone SODIUM 1,000 MG in DEXTROSE 5% 50 ML IV SCH (23:40)
[2021-09-05] MEDS: LEVOTHYROXINE SODIUM 112 MCG TABLET PO SCH (05:49)
[2021-09-05] MEDS: AZITHROMYCIN 500 MG in DEXTROSE 5% 250 ML IV SCH (05:49)
[2021-09-05 07:57] LABS: Basophils # (auto) 0.06 K/uL (0-0.2); Basophils % (auto) 0.6 %; Hematocrit (blood only) 46.4 % (37-47); Hemoglobin 15.3 g/dL (12.0-16.0); Immature Granulocytes # (auto) 0.43 K/uL (0.00-0.02); Immature Granulocytes % (auto) 4.2 %; Lymphocytes # (auto) 1.32 K/uL (1.2-3.4); Mean Corpuscular Hemoglobin 29.1 pg (25-34); Mean Corpuscular Volume 88.4 fL (80-100); Mean Platelet Volume 9.7 fL (7.4-10.4); Monocytes # (auto) 1.07 K/uL (0.11-0.59); Monocytes % (auto) 10.5 %; Neutrophils # (auto) 7.27 K/uL (1.4-6.5); Neutrophils % (auto) 71.7 %; Platelet Count 544 K/uL (130-400); RDW Coefficient of Variation 14.7 % (11.5-14.5); RDW Standard Deviation 47.5 fL (36.4-46.3); Red Blood Count 5.25 M/uL (4.2-5.4); White Blood Count 10.15 K/uL (4.8-10.8)
[2021-09-05] MEDS ORDERED: ENOXAPARIN INJ 40 MG/0.4 ML SYR SQ SCH (08:00)
[2021-09-05] MEDS: guaiFENesin 600 MG TABCR PO SCH (09:09)
[2021-09-05] MEDS: FUROSEMIDE 40 MG/4 ML VIAL IV SCH (09:10)
[2021-09-05] MEDS: dexAMETHasone 6 MG in SYRINGE 0 ML IV SCH (09:10)
[2021-09-05] MEDS: CHOLECALCIFEROL 5,000 UNITS 125 MCG TAB PO SCH (09:11)
[2021-09-05] MEDS: amLODIPine BESYLATE 5 MG TAB PO SCH (09:12)
[2021-09-05] MEDS: ZINC SULFATE 220 MG CAPSULE PO SCH (09:12)
[2021-09-05] MEDS: ASCORBIC ACID 500 MG TAB PO SCH (09:12)
[2021-09-05] MEDS: 4mg Daily x 14 days (eGFR >60 mL/min/1.73m2) PO SCH (09:30)
--- NOTE | 2021-09-05 15:37 | Discharge Summary ---
Date of Service September 05, 2021 Admission HPI Per Admitting Provider The patient is a 61-year-old female with past medical history including hypertension and hypothyroidism, who is unvaccinated for COVID-19, who was exposed to a 20-year-old son with COVID-19, who presents with symptoms as noted above. Significant laboratories: Potassium 3.4, AST 98, albumin 2.4. COVID-19 testing is positive Pulse ox on room air is 84%, improving to 94% on 3 L nasal cannula oxygen. Patient was given dexamethasone 10 mg IV by the ED Principal Diagnosis 1. Covid-19 with Associated Pneumonia 2. Hypoxemia- resolved Discharge Exam General: Resting comfortably in her bedside chair. Does not appear ill or toxic NAD. HEENT: Head is AT/NC buccal mucosa is moist and pink Neck: No JVD. Negative hepatojugular reflex Cardiac: RRR without M/G/R Lungs: Normal respiratory effort. Speaking full sentences without conversational dyspnea. Improved air exchange throughout without crackles but still with a positive egophony at the left base Abdomen: Normoactive X4. Soft and nontender in all quadrants. Extremities: No peripheral clubbing cyanosis or edema Neuro: A&O X4 cranial nerves II through XII are grossly intact no focal neuro deficits Skin: No obvious skin lesions or rashes Psych: Appropriate affect pleasant and cooperative Discharge Data Allergies Allergy/AdvReac Type Severity Reaction Status Date / Time Penicillins Allergy Unknown Unverified 09/01/21 19:36 Consultations 09/01/21 19:08 ED Decision to Admit Stat Ordered Studies 09/01/21 21:39 CXR: IMPRESSION: 1. Right greater than left airspace opacities are compatible with multifocal pneumonia. 2. Probable trace pleural effusions. CT angio chest PE protocol Stat IMPRESSION: 1. Cardiomegaly without pulmonary emboli. 2. Extensive bilateral groundglass and alveolar opacities compatible with viral pneumonia. 3. Small pleural effusions. Hospital Course (1) Pneumonia due to 2019 novel coronavirus: * unvaccinated * initially on 5L o2. on 09/02-- up to 14L and still desaturating into the mid 80's with limited movement (such as toileting) -- goal pulse ox is 88-90%. Transitioned to [facility] requiring 60% FiO2. * on 09/03- transitioned to 6L NC and pulse ox maintained in the low 90's. * has continued to show favorable response and 1/ transitioned to RA (90-93% at rest). Does seem to desaturate with toileting and will require O2 with ambulation and perhaps when asleep * treated with decadron day (5 doses) while in house * Remdesivir completed x5 doses * Duonebs utilized as needed * CRP 25.5 -->14.7 --> now down to 4.56 * baricitinib started 09/02 and given daily. No need to continue this upon D/C * lasix trials started 09/02 and given daily for negative fluid balance. Renal Function tolerated this. * Started on empiric abx therapy (azithromycin/rocephin) but admitted provider. Received 5 days of this. No need for continued doses at this time. Do not suspect underlying bacterial infection but 5 days sufficient for Tx. * Mucolytic agents and antitussives while in house. Rx for Tessalon ad proair upon D/C * Continue vitamin D, zinc, add vitamin C * had been proning when on HHF * continue IS/flutter valve * lovenox for DVT prophylaxis while in house. Recommend ASA EC 81mg BID x 30 days (given risk of DVT/PE post covid) Patient seen on 09/05 and has shown significant and remarkable improvement. She has been on room air for over 24 hours now and her pulse ox remained in the mid 90s. She did two-step pulse oximetry and did not desaturate or require supplemental oxygen even with ambulation (2) Hypertension: Continue amlodipine with hold parameters (3) Hypothyroidism (acquired): Continue levothyroxine Total Time Total Time Spent Total Time Spent (In Minutes): 45 including time spent with patient, discussion with attending and coordination of care along with documentation Discharge Plan Discharge Items Patient Disposition: Home - Self-Care Reason For Visit: COVID-19 PNEUMONIA WITH HYPOXIA Discharge Diagnosis: 1. Covid-19 with Associated Pneumonia 2. Hypoxemia (low oxygen level)-- resolved Activity: As commented below Activity Comment: as tolerated- will be easily fatigued Non-emergency contact: Primary Care Provider Call non-emergency contact if: you have any medication questions and your sym ptoms worsen Follow-up/Referrals: Xavier Brush MD [Physician] - 09/12/21 1:50 pm (Dr. Duran is unavailable. Please follow up with Dr. Brush on Friday09/12/21 at 1:50 pm. Please arrive to the office at 1:35 pm for your appointment. If you are unable to keep this appointment, please call the office to reschedule at [phone].) Netta Duran, DO [Primary Care Provider] - (Dr. Duran is unavailable. Follow up appointment scheduled with Dr. Brush.) Diet: Regular Addtl Attending Provider Instructions: - complete full course of Decadron (5 more doses) - use Tessalon Perles as needed for cough - Use Proair rescue inhaler (2 puffs inhalation every 6 hours as needed for cough/shortness of breath/wheezing) - given this covid infection, you are at increased risk of blood clots (lungs and legs). Recommend Enterically Coated Aspirin 81mg twice a day x 30 days - Follow up with your Family Physician in 7-10 days - recommend follow up chest x-ray in 1 month-- at the discretion of your PCP - Isolation precautions (quarantine) recommended -- 10 days from symptoms onset but per history, you are beyond this. - return to the ED for any new or worsening symptoms Pending Studies at Discharge: No Stand-Alone Forms: My [facility] Medications and DC Order Prescriptions: New dexamethasone [Decadron] 6 mg tablet 6 mg PO DAILY Qty: 5 RF: 0 albuterol sulfate [ProAir HFA] 90 mcg/actuation HFA aerosol inhaler 2 inh inhalation Q6H PRN (Reason: shortness of breath or wheezing) Qty: 6.7 RF: 0 benzonatate 100 mg capsule 100 mg PO TID PRN (Reason: cough) Qty: 30 RF: 0 Continued levothyroxine 112 mcg tablet 112 mcg PO QAM RF: 0 amlodipine 10 mg Tablet 10 mg PO DAILY RF: 0 ibuprofen 200 mg Tablet 400 mg PO Q6H PRN (Reason: Pain) RF: 0 acetaminophen [Tylenol 8 Hour] 650 mg Tablet Extended Release 1,300 mg PO Q8H PRN (Reason: Pain) RF: 0 Discontinued Coricidin HBP Chest Ian-Cough 10-200 mg Capsule 1 tab-cap PO QID PRN (Reason: Cough) RF: 0 Discharge Orders: Discharge Order (Routine); Ordered 09/05/21 Ordered By: Kim Beatty/Other Patient Handouts: COVID-19 Home Care, Controlling High Blood Pressure Admission Data Admit Date/Time: 09/01/21 20:02 Attending Provider: Carmen Panchal Admit Provider: Jonh Shannon Primary Care Provider: Netta Duran Other Providers: Daniel Cristobal Other Interventions: Discharge Summary Assessment (RN) Last Done: 09/05/21 09:45 Supervising Physician Co-Signing Physician Notes Attending Attestation and Discharge Note: Pt seen/examined, chart reviewed, care plan d/w PA Kim Florez. I agree with the alfaro components of her discharge documentation. 61yo female admitted with acute hypoxic respiratory failure 2nd to extensive COVID-19 pneumonia. Peak oxygen requirements - high-flow NC, 60% FiO2. Treated with IV dexamethasone, IV Remdesivir, and also Baricitinib as she met criteria for its use. She also received IV antibiotics and IV lasix. She had impressive improvement and turn-around during her stay, weaning off HFNC to standard NC O2. The latter was fully weaned off by discharge, and she also passed her 2step ambulatory O2 test. CRP improved from a high of 25 down to 4 during the admission. She will complete a course of oral dexamethasone post-discharge and take asa 81mg BID for DVT proph x 30 days as recommended by Ms Florez. Labs and vitals were stable in the 24 hours prior to discharge. Discharge exam - gen - NAD, looks very good mouth - MMM neck - no JVD heart - RRR, s1 s2, no murmur lungs - scant bibasilar rales, otherwise CTA b/l, no wheezes, no increased work of breathing abd - soft NT ND BS+ ext - no edema, pulses 2+ b/l Dionisio Ellis MD Coding Level of Care Code D/C DAY MANAGEMENT >30 MINS Diagnoses Pneumonia due to 2019 novel coronavirus U07.1; J12.82 Hypertension I10 Hypothyroidism (acquired) E03.9
== END 2021-09-05 14:37 | disposition home or self-care (01) | DRG 177 ==
LOC: ED 17:19 → 2S 20:02 → SUATTDRO 20:02 → 2S 22:32